=== PATIENT | female | born 1955 | race Caucasian/White ===

== ENCOUNTER 2016-07-20 14:10 | Emergency (ER) | payer BC | END 2016-07-20 14:12 | disposition left against medical advice (07) | LOC: UCEAST 14:10 | DX: Z53.21 Procedure and treatment not carried out due to patient leaving prior to being seen by health care provider (principal); N39.9 Disorder of urinary system, unspecified ==

== ENCOUNTER 2016-07-25 10:57 | Emergency (ER) | payer BC ==
[2016-07-25 11:29] VITALS: BP 145/89
--- NOTE | 2016-07-25 12:16 | UC ---
Complaint Female HPI - HPI Summary HPI Summary: 61 year old female with complaint of constant pressure low in left pelvis and feeling of having to urinate frequently. She denies pain with urination. Denies fever, chills, nausea or vomiting. She was evaluated last Saturday, 5 days ago for the same symptoms. No urinary infection was found. Pelvic exam was done and found to be normal. It was recommended to her to drink try baking soda for her symptoms. She states that caused constipation. She has taken a new supplement and is now having loose stools. She denies vaginal discharge or bleeding Hx of significant anxiety and she recognizes it is very high over the last few weeks Hx of right Oophorectomy due to cystic teratoma - History Of Current Complaint Chief Complaint: UCGU Stated Complaint: BLADDER/INTESTINAL COMPLAINT Time Seen by Provider: 07/25/16 11:17 Hx Obtained From: Patient ?: No Onset/Duration: Gradual Onset, Lasting Weeks - 2, Still Present Timing: Constant Severity Initially: Mild Severity Currently: Moderate Character: Dull, Cramping Aggravating Factor(s): Urination - and bowel movements Alleviating Factor(s): Nothing Associated Signs And Symptoms: Negative: Back Pain, Vaginal Bleeding/Discharge, Vaginal Discharge, Nausea, Vomiting(# Of Episodes =), Genital Swelling, Genital Blisters - Risk Factors Ectopic Risk Factor: Negative, Prior Pelvic Surgery Ovarian Torsion Risk Factor: Ovarian Cysts/Tumors - Allergies/Home Medications Allergies/Adverse Reactions: Allergies Allergy/AdvReac Type Severity Reaction Status Date / Time No Known Allergies Allergy Verified 07/25/16 11:18 PMH/Surg Hx/FS Hx/Imm Hx Previously Healthy: Yes Endocrine History Of: 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, Hypothyroidism Denies: Diabetes, Hyperthyroidism Cardiovascular History Of: Denies: Cardiac Disorders, Hypertension, Pacemaker/ICD Respiratory History Of: Denies: COPD, Asthma GI/ History Of: Denies: Ulcer Neurological History Of: Denies: TIA, Seizures Psychological History Of: Denies: Anxiety, Depression Cancer History Of: Denies: Breast Cancer - Surgical History Surgical History: Yes Surgery Procedure, Year, and Place: BREAST REDUCTION 2005, 1997, R OVARIAN CYST REMOVAL 1978, 4 TEETH IMPLANTS, Tonsillectomy - Family History Known Family History: Positive: Hypertension Negative: Diabetes - Social History Occupation: Employed Full-time Lives: With Family Alcohol Use: Occasionally Alcohol Amount: 2 drinks a week Substance Use Type: None Smoking Status (MU): Never Smoked Tobacco Have You Smoked in the Last Year: No - Immunization History Most Recent Influenza Vaccination: has not had it Most Recent Tetanus Shot: up to date Most Recent Pneumonia Vaccination: never had Review of Systems Constitutional: Negative Skin: Negative Eyes: Negative ENT: Negative Respiratory: Negative Cardiovascular: Negative Gastrointestinal: Abdominal Pain - aching low on left side and cramping pain with frequent urination Genitourinary: Dysuria, Frequency Motor: Negative Neurovascular: Negative Musculoskeletal: Negative Neurological: Negative Psychological: Anxious - very All Other Systems Reviewed And Are Negative: Yes Physical Exam Triage Information Reviewed: Yes Appearance: No Pain Distress, Well-Nourished, Ill-Appearing - with obvious anxiety Vital Signs: Initial Vital Signs Temp 97.7 F 07/25/16 11:20 Pulse 93 07/25/16 11:20 Resp 18 07/25/16 11:20 BP 145/89 07/25/16 11:20 Pulse Ox 100 07/25/16 11:20 Vital Signs Reviewed: Yes Eyes: Positive: Conjunctiva Clear. Negative: Discharge ENT: Positive: Hearing grossly normal. Negative: Nasal congestion Neck: Positive: Supple, Nontender Respiratory: Positive: Lungs clear, Normal breath sounds Cardiovascular: Positive: RRR, No Murmur Abdomen Description: Positive: Nontender, No Organomegaly, Soft. Negative: CVA Tenderness (R), CVA Tenderness (L), Distended, Guarding, Peritoneal Signs, Pulsatile Mass Musculoskeletal: Positive: Strength Intact, ROM Intact Neurological: Positive: Alert, Muscle Tone Normal Psychological: Positive: Age Appropriate Behavior - pleasant and cooperative Skin: Negative: rashes, breakdown Complaint Female Dx - Course Course Of Treatment: pelvic ultrasound - unremarkable. Pt reassured. UA - negative. Much discussion and education about her anxiety. Follow up plan established - Differential Dx/Diagnosis Differential Diagnosis/HQI/PQRI: Ovarian Cyst, Urinary Tract Infection Provider Diagnoses: Anxiety. Pelvic Pain. Urinary frequency Discharge - Discharge Plan Condition: Stable Disposition: HOME Patient Education Materials: Pelvic Pain in Women (ED) Referrals: Jazmin Hoover MD [Primary Care Provider] - 5 Days (for follow up) Additional Instructions: If your symptoms worsen in anyway please go to the emergency department for further evaluation
--- NOTE | 2016-07-25 13:00 | RAD ---
INDICATION: Left pelvic pressure. History of resection of right adnexal cystic teratoma COMPARISON: None TECHNIQUE: Longitudinal and transverse transvaginal scans of the pelvis were obtained. FINDINGS: Uterus: The uterus is normal in size. There are no focal masses. Is retroflexed. The uterus measures 5.5 x 2.4 x 2.8 cm. Endometrial thickness: The endometrial thickness is measured at 0.1 cm. . Free fluid: There is no significant free fluid . Ovaries: There is right oophrectomy by history. There may be a small remnant of the right ovary measures 1.1 cm. The left ovary measures 1.9 x 1.3 x 1.3 cm. . Doppler interrogation demonstrates flow to the left.. Other: None IMPRESSION: RIGHT OOPHRECTOMY (SEE ABOVE). NORMAL UTERUS AND LEFT OVARY
== END 2016-07-25 13:27 | disposition home or self-care (01) ==
LOC: UCEAST 10:57
DX: R10.2 Pelvic and perineal pain (principal); R35.0 Frequency of micturition; F41.9 Anxiety disorder, unspecified; E06.3 Autoimmune thyroiditis; E03.9 Hypothyroidism, unspecified; Z90.721 Acquired absence of ovaries, unilateral
CPT/HCPCS: 76830; 81002; 99211; G0463

== ENCOUNTER 2017-04-02 07:47 | Emergency (ER) | payer BC ==
[2017-04-02 09:52] VITALS: BP 144/84
--- NOTE | 2017-04-02 10:39 | UC ---
Abdominal Pain Female HPI - HPI Summary HPI Summary: Patient presents to with CC of left rib pain x 2 months. She states the pain is under the rib cage, worse with palpation and worse with movement. Better with rest. She states she has had chronic anxiety x 1.5 years since her husbands passing and symptoms become worse when her anxiety worsens. She has some intermittent diarrhea which has been present for over 10 years. She was never dx with IBS, but feels she may have some of the symptoms. She denies N/V/ C. Denies lack of appetite. Denies any food or behavioral changes. She states when she relaxes and is around friends, the pain reduces and often will go away completely. She also notes the pain is worse after pilates. Denies chest pain, SOB, urinary symptoms, back pain. She states she is very active and feels healthy overall. Denies injury to the ribs. Denies OCP use, travel hx or sedentary lifestyle. - History of Current Complaint Chief Complaint: UCGI Stated Complaint: ABD PAIN Time Seen by Provider: 04/02/17 09:26 Hx Obtained From: Patient ?: No Onset/Duration: Gradual Onset Timing: Intermittent Episodes Lasting: - 30min-1 hour Severity Initially: Mild Severity Currently: Mild Pain Intensity: 2 Pain Scale Used: 0-10 Numeric Location: Other - left ribs Radiates: No Character: Aching Aggravating Factor(s): Movement Alleviating Factor(s): Position Associated Signs and Symptoms: Positive: Negative - Risk Factors Ectopic Risk Factor: Negative Ovarian Torsion Risk Factor: Reproductive Age, Ovarian Cysts/Tumors - 1x - 40 years ago, Hysterectomy - 30 years ago Allergies/Adverse Reactions: Allergies Allergy/AdvReac Type Severity Reaction Status Date / Time No Known Allergies Allergy Verified 04/02/17 08:13 PMH/Surg Hx/FS Hx/Imm Hx Previously Healthy: Yes - Surgical History Surgical History: Yes Surgery Procedure, Year, and Place: BREAST REDUCTION 2005, 1997, R OVARIAN CYST REMOVAL 1978, 4 TEETH IMPLANTS, Tonsillectomy - Family History Known Family History: Positive: None, Hypertension Negative: Diabetes - Social History Occupation: Employed Part-time Lives: Alone Alcohol Use: Occasionally Alcohol Amount: 2 drinks a week Substance Use Type: None Smoking Status (MU): Never Smoked Tobacco Have You Smoked in the Last Year: No - Immunization History Most Recent Influenza Vaccination: has not had it Most Recent Tetanus Shot: up to date Most Recent Pneumonia Vaccination: never had Review of Systems Constitutional: Negative Skin: Negative ENT: Negative Respiratory: Negative Cardiovascular: Negative Gastrointestinal: Other - left upper quadrant/rib pain Genitourinary: Negative Motor: Negative Neurovascular: Negative Musculoskeletal: Arthralgia - left upper rib pain Neurological: Negative Psychological: Anxious Is Patient Immunocompromised?: No All Other Systems Reviewed And Are Negative: Yes Physical Exam Triage Information Reviewed: Yes Appearance: Well-Appearing, Well-Nourished Vital Signs: Initial Vital Signs Temp 96.8 F 04/02/17 08:09 Pulse 88 04/02/17 08:09 Resp 18 04/02/17 08:09 BP 139/87 04/02/17 08:09 Pulse Ox 100 04/02/17 08:09 Vital Signs Reviewed: Yes Eye Exam: Normal Eyes: Positive: Conjunctiva Clear ENT Exam: Normal ENT: Positive: Normal ENT inspection, Pharynx normal Dental Exam: Normal Neck exam: Normal Neck: Positive: Supple, Nontender, No Lymphadenopathy Respiratory Exam: Normal Respiratory: Positive: Chest non-tender, Lungs clear, Normal breath sounds, No respiratory distress, No accessory muscle use, Other: Cardiovascular Exam: Normal Cardiovascular: Positive: RRR Musculoskeletal Exam: Normal Musculoskeletal: Positive: Strength Intact, Other: - pain on palpation under the left rib cage Neurological: Positive: Alert, Muscle Tone Normal Psychological: Positive: Normal Response To Family Skin Exam: Normal Abd Pain Female Course/Dx - Course Course Of Treatment: Patient evaluated for left rib pain/abdominal pain. She exhibits signs and sxs of anxiety, which she states worsens her left side body pain. Worsening symptoms with pilates and stretching. Better with rest and when out with friends (which reduces her anxiety). She does not exhibit any chest pain signs including chest pain worse with exertion or SOB. She denies cardiac history. She is concerned with pancreatic CA. Explained to patient usually signs of pancreatic CA includes early satiety and bloated feeling, both of which the patient does not currently have. She denies trauma to the area. Denies travel history, calf pain, OCP use or hx of CA. Low concern for PE at this time and this was discussed with patient. Recent lab work obtained 2 weeks ago, all which was WNL. Discussed lab results with patient and she agrees to follow up with PCP next week and possibly GI specialist if any symptoms of diarrhea (which has been present intermittently for 10 years) remains. She denies ETOH use so pancreatitis is unlikely. The feeling does not improve with food or worsen with caffeine, so less likely to be GERD or ulcer or gastritis sxs. She is also being seen by her PCP for anxiety symptoms and currently has clonazepam at home for which she takes. She is reassured during this visit this is likely muscular, but if symptoms persist or worsen or change, she will need to go to the ED where she is able to get labs and images as needed. She agrees and is OK with dsicharge at this time. Referral to Dr. Meza given. - Differential Dx/Diagnosis Differential Diagnosis: Constipation, Diverticulitis, Pancreatitis Provider Diagnoses: Muscular strain Discharge - Discharge Plan Condition: Stable Disposition: HOME Patient Education Materials: Muscle Strain (ED) Referrals: Jazmin Hoover MD [Primary Care Provider] - Mike Meza MD [Medical Doctor] - Additional Instructions: Follow up only as needed with Dr. Meza for worsening symptoms. Continue to stretch out the side body. This is likely muscular. If anything worsens or the pain seems to not be going away, please go to the ED. Relaxation techniques may help with any symptoms of anxiety.
== END 2017-04-02 10:38 | disposition home or self-care (01) ==
LOC: UCEAST 07:47
DX: S29.011A Strain of muscle and tendon of front wall of thorax, initial encounter (principal); X58.XXXA Exposure to other specified factors, initial encounter; Y93.9 Activity, unspecified; Y92.9 Unspecified place or not applicable; F41.9 Anxiety disorder, unspecified
CPT/HCPCS: 99212; G0463

== ENCOUNTER 2017-06-01 07:57 | Emergency (ER) | payer BC ==
[2017-06-01] MEDS ORDERED: Lidocaine 1% MPF* 2 ML VIAL INJ ONE (09:36)
[2017-06-01 10:09] VITALS: BP 122/80
--- NOTE | 2017-06-01 14:59 | UC ---
Han Aguilar Angela, scribed for KurtDorene DO Victorina on 06/01/17 at 0840 . Upper Extremity HPI - HPI Summary HPI Summary: This pt is a 62 y/o female presenting to [facility] c/o left 4th finger redness and swelling. Pt reports her other finger on the same left hand was infected last week. Pt notes she was soaking her whole hand in Epson salt and Dr Anaya lanced her infected finger, which has now resolved. Now, pt reports with left 4th finger redness and swelling. She states she bites her nails, but denies other trauma or injury to her finger. She notes she has been soaking her finger in hot water. Pt has also tried using a needle to drain it with no relief. She reports that her skin on her hand cracks in the winter. Pt also carries firewood without gloves, which she states might have contributed to her swelling. Pt denies fever, nausea, vomiting, chest pain, SOB, cough, sore throat. PMHx includes C. diff, hypothyroidism. - History of Current Complaint Chief Complaint: UCGeneralIllness Stated Complaint: INFECTED FINGER Hx Obtained From: Patient Onset/Duration: Lasting Days, Still Present Pain Intensity: 7 Pain Scale Used: 0-10 Numeric Location Of Pain: Is Discrete @ - left fourth finger Character: Throbbing Aggravating Factor(s): Movement, Other - pressure Alleviating Factor(s): Other: - soaking in hot water Associated Signs And Symptoms: Positive: Swelling, Redness. Negative: Fever, Numbness/Tingling - Allergies/Home Medications Allergies/Adverse Reactions: Allergies Allergy/AdvReac Type Severity Reaction Status Date / Time No Known Allergies Allergy Verified 06/01/17 08:01 Home Medications: Home Medications LORazepam TAB(*) [Ativan 1 MG TAB (*)] 1 mg PO 06/01/17 [History] Sertraline* [Zoloft*] 25 mg PO DAILY 06/01/17 [History Confirmed 06/01/17] PMH/Surg Hx/FS Hx/Imm Hx - Additional Past Medical History Additional PMH: PMHx: C. diff. Endocrine History: Thyroid Disease - Marge's Other Endocrine History: DENIES: DM Other Cardiovascular History: DENIES: HTN Psychological History: Anxiety - Surgical History Surgical History: Yes Surgery Procedure, Year, and Place: BREAST REDUCTION 2005, 1997, R OVARIAN CYST REMOVAL 1979, 4 TEETH IMPLANTS, Tonsillectomy - Family History Known Family History: Positive: Other - CA. Daughter: C. diff Negative: Cardiac Disease, Hypertension, Diabetes - Social History Alcohol Use: Occasionally Alcohol Amount: 2 drinks a week Substance Use Type: None Smoking Status (MU): Never Smoked Tobacco Have You Smoked in the Last Year: No - Immunization History Most Recent Influenza Vaccination: has not had it Most Recent Tetanus Shot: up to date Most Recent Pneumonia Vaccination: never had Review of Systems Constitutional: Negative Skin: Negative Eyes: Negative ENT: Negative Respiratory: Negative Cardiovascular: Negative Gastrointestinal: Negative Genitourinary: Negative Motor: Negative Neurovascular: Negative Musculoskeletal: Other: - left fourth finger swelling and redness Neurological: Negative Psychological: Negative All Other Systems Reviewed And Are Negative: Yes Physical Exam Triage Information Reviewed: Yes Appearance: Well-Appearing, No Pain Distress, Well-Nourished Vital Signs: Initial Vital Signs Temp 97.2 F 06/01/17 08:03 Pulse 78 06/01/17 08:03 Resp 15 06/01/17 08:03 BP 104/60 06/01/17 08:03 Pulse Ox 99 06/01/17 08:03 Vital Signs Reviewed: Yes Eyes: Positive: Conjunctiva Clear. Negative: Discharge ENT: Positive: Hearing grossly normal. Negative: Muffled voice, Hoarse voice Neck exam: Normal Neck: Positive: Supple Respiratory: Positive: Lungs clear, Normal breath sounds, No respiratory distress, No accessory muscle use Cardiovascular: Positive: RRR, No Murmur Musculoskeletal: Positive: Edema @ - fourth finger on the left hand. Neurological: Positive: Alert, Muscle Tone Normal Psychological Exam: Normal Psychological: Positive: Age Appropriate Behavior Skin Exam: Normal, Other - Warm, dry, normal color Skin: Positive: Other - Swelling, erythema, and tenderness around the ulnar border of the nail bed on the fourth finger of the left hand. No fluctulance was noted. There is a pyogenic granuloma note along the borader of the mail bed on that same finger. Upper Extremity Course/Dx - Course Course Of Treatment: Medications reviewed this visit. High blood pressure noted likely due to pts condition. Attempted to drain finger without success. Pt will be discharged with Keflex. - Differential Dx/Diagnosis Provider Diagnoses: Paronychia, pyogenic granuloma Discharge - Discharge Plan Condition: Stable Disposition: HOME Prescriptions: Cephalexin CAP* [Keflex CAP*] 500 mg PO BID #20 cap Patient Education Materials: Paronychia (ED) Referrals: Jazmin Hoover MD [Primary Care Provider] - 2 Weeks Additional Instructions: WE ATTEMPTED TO DRAIN THE INFECTION ON YOUR FINGER WITHOUT SUCCESS. CEPHALEXIN: The antibiotic you've been prescribed is a member of the cephalosporin class. This type of antibiotic covers a wide variety of infections, including those of the skin, lungs, and urinary tract. It's useful for staph infections. This antibiotic is slightly similar to the penicillin family. In rare cases , a person who is allergic to penicillin will also be allergic to this medication. If you have had a severe allergic reaction to penicillin, and have not taken this antibiotic since that time, notify your doctor. Antibiotics which cover many germs ("broad spectrum" antibiotics) are more likely to cause diarrhea or "yeast" infections. Women prone to vaginal yeast problems may suffer an attack after taking this antibiotic. In infants, oral thrush (white spots "stuck" on the cheek) or yeast diaper rash may result. See your doctor if these problems occur. Call at once if you develop itching, hives , shortness of breath, or lightheadedness. ANYTIME YOU TAKE AN ANTIBIOTIC, IT IS IMPORTANT TO REPLENISH THE BODY'S SUPPLY OF "GOOD BACTERIA." YOU CAN GET GOOD BACTERIA FROM HIGH QUALITY CULTURED FOODS SUCH LOCAL YOGURT, SOUR KRAUT, MACHELLE HA, NATURALLY FERMENTED PICKLES AND PROBIOTIC DRINKS. YOU CAN ALSO GET GOOD BACTERIA FROM A PROBIOTIC SUPPLEMENT. DISCUSSED, YOU HAVE ALSO DEVELOPED A GRANULOMA ON THE EDGE OF YOU NAIL BED. THESE CAN BE REMOVED SURGICALLY. Your blood pressure was elevated at this visit, 122/80. That does not mean you have hypertension, it is probably due to your current condition. Please follow up with your primary care provider. The documentation as recorded by the Han fonseca Angela accurately reflects the service I personally performed and the decisions made by me, Dorene Hicks DO.
== END 2017-06-01 10:45 | disposition home or self-care (01) ==
LOC: UCEAST 07:57
DX: L03.012 Cellulitis of left finger (principal); L98.0 Pyogenic granuloma; Z72.89 Other problems related to lifestyle; R03.0 Elevated blood-pressure reading, without diagnosis of hypertension; F41.9 Anxiety disorder, unspecified
CPT/HCPCS: 99212; G0463

== ENCOUNTER 2018-04-30 14:43 | Emergency (ER) | payer BC ==
[2018-04-30 14:53] VITALS: BP 150/91
--- NOTE | 2018-04-30 16:14 | UC ---
Skin Complaint HPI - HPI Summary HPI Summary: 2- 3 days ago patient noticed a small lump on her left upper inner thigh. Thinks it may have been there for some time but has a lot of anxiety about medical conditions so she started playing with it and squeezing it and poking at it. Overlying skin is slightly red but no induration or fluctuance. No fever or drainage. - History of Current Complaint Chief Complaint: UCLowerExtremity Time Seen by Provider: 04/30/18 15:53 Stated Complaint: SKIN IRRITATION ON THIGH Hx Obtained From: Patient Onset/Duration: Sudden Onset, Lasting Days, Still Present Timing: Constant Onset Severity: Mild Current Severity: Mild Pain Intensity: 1 Pain Scale Used: 0-10 Numeric Location: Discrete - LEFT, UPPER, INNER THIGH Character: Pain Aggravating Factor(s): Touch Alleviating Factor(s): Nothing Associated Signs & Symptoms: Positive: Negative - Allergy/Home Medications Allergies/Adverse Reactions: Allergies Allergy/AdvReac Type Severity Reaction Status Date / Time No Known Allergies Allergy Verified 04/30/18 14:54 Review of Systems Constitutional: Negative Skin: Other - PAINFUL BUMP LEFT UPPER INNER THIGH Respiratory: Negative Cardiovascular: Negative Gastrointestinal: Negative All Other Systems Reviewed And Are Negative: Yes PMH/Surg Hx/FS Hx/Imm Hx Psychological History: Anxiety - Surgical History Surgical History: Yes Surgery Procedure, Year, and Place: BREAST REDUCTION 2005, 1997, R OVARIAN CYST REMOVAL 1978, 4 TEETH IMPLANTS, Tonsillectomy - Family History Known Family History: Positive: None, Other - CA. Daughter: C. diff Negative: Cardiac Disease, Hypertension, Diabetes - Social History Alcohol Use: Occasionally Alcohol Amount: 2 drinks a week Substance Use Type: None Smoking Status (MU): Never Smoked Tobacco Have You Smoked in the Last Year: No - Immunization History Most Recent Influenza Vaccination: has not had it Most Recent Tetanus Shot: up to date Most Recent Pneumonia Vaccination: never had Physical Exam Triage Information Reviewed: Yes Appearance: Well-Appearing, No Pain Distress, Well-Nourished Vital Signs: Initial Vital Signs Temp 97.3 F 04/30/18 14:48 Pulse 106 04/30/18 14:48 Resp 18 04/30/18 14:48 BP 150/91 04/30/18 14:48 Pulse Ox 100 04/30/18 14:48 Vital Signs Reviewed: Yes Eyes: Positive: Conjunctiva Clear ENT: Positive: Hearing grossly normal Neck: Positive: Supple Respiratory: Positive: No respiratory distress, No accessory muscle use Cardiovascular: Positive: Pulses Normal Abdomen Description: Positive: Soft Musculoskeletal: Positive: No Edema Neurological: Positive: Alert Psychological: Positive: Age Appropriate Behavior Skin: Positive: Other - 2CM AREA MILD ERYTHEMA LEFT UPPER, INNER THIGH OVERLYING A TENDER, FIRM 1 CM NODULE PALPATED SUBCUTANEOUSLY. NO FLUCTUANCE OR INDURATION Course/Dx - Diagnoses Provider Diagnoses: CYST - LEFT UPPER INNER THIGH Discharge - Sign-Out/Discharge Documenting (check all that apply): Patient Departure All imaging exams completed and their final reports reviewed: No Studies - Discharge Plan Condition: Stable Disposition: HOME Referrals: Jazmin Hoover MD [Primary Care Provider] - If Needed Additional Instructions: THE SMALL CYST-LIKE STRUCTURE DOES NOT SEEM TO BE ANYTHING CONCERNING AT PRESENT. STOP SQUEEZING IT. THE REDNESS AND DISCOMFORT SHOULD SUBSIDE OVER THE NEXT WEEK OR SO. SEEK FOLLOW-UP IF YOU DEVELOP SPREADING REDNESS OF THE SKIN, PURULENT DRAINAGE, FEVER, INCREASED PAIN OR ANY OTHER CONCERNING SYMPTOMS. - Billing Disposition and Condition Condition: STABLE Disposition: Home
== END 2018-04-30 16:15 | disposition home or self-care (01) ==
LOC: UCEAST 14:43
DX: L72.9 Follicular cyst of the skin and subcutaneous tissue, unspecified (principal)
CPT/HCPCS: 99211; G0463

== ENCOUNTER 2018-05-06 07:45 | Emergency (ER) | payer BC ==
[2018-05-06 07:57] VITALS: BP 151/84
--- NOTE | 2018-05-06 08:17 | UC ---
Skin Complaint HPI - HPI Summary HPI Summary: ONSET OF ITCHY, SOMEWHAT PAINFUL RED RASH RIGHT ANTERIOR SHOULDER 3 DAYS AGO. NO DRAINAGE. NO FEVER. PT IS EXTREMELY ANXIOUS DUE TO RECENT FAMILY ILLNESS. - History of Current Complaint Chief Complaint: UCRash Time Seen by Provider: 05/06/18 08:00 Stated Complaint: RASH ANXIETY Hx Obtained From: Patient Onset/Duration: Sudden Onset, Lasting Days, Still Present Timing: Constant Onset Severity: Moderate Current Severity: Moderate Pain Intensity: 0 Pain Scale Used: 0-10 Numeric Location: Discrete - RIGHT ANTERIOR SHOULDER Character: Pruritus, Pain, Redness, Raised Aggravating Factor(s): Touch Alleviating Factor(s): Nothing Associated Signs & Symptoms: Positive: Rash, Tenderness - Allergy/Home Medications Allergies/Adverse Reactions: Allergies Allergy/AdvReac Type Severity Reaction Status Date / Time No Known Allergies Allergy Verified 05/06/18 07:56 Review of Systems Constitutional: Negative Skin: Rash Respiratory: Negative Cardiovascular: Negative Gastrointestinal: Negative Psychological: Anxious All Other Systems Reviewed And Are Negative: Yes PMH/Surg Hx/FS Hx/Imm Hx Endocrine History: Hypothyroidism Psychological History: Anxiety - Surgical History Surgical History: Yes Surgery Procedure, Year, and Place: BREAST REDUCTION 2005, 1997, R OVARIAN CYST REMOVAL 1978, 4 TEETH IMPLANTS, Tonsillectomy - Family History Known Family History: Positive: None, Other - [place]. Daughter: C. diff Negative: Cardiac Disease, Hypertension, Diabetes - Social History Alcohol Use: Occasionally Alcohol Amount: 2 drinks a week Substance Use Type: Prescribed Smoking Status (MU): Never Smoked Tobacco Have You Smoked in the Last Year: No - Immunization History Most Recent Influenza Vaccination: has not had it Most Recent Tetanus Shot: up to date Most Recent Pneumonia Vaccination: never had Physical Exam Triage Information Reviewed: Yes Appearance: Well-Appearing, No Pain Distress, Well-Nourished Vital Signs: Initial Vital Signs Temp 97.3 F 05/06/18 07:51 Pulse 102 05/06/18 07:51 Resp 18 05/06/18 07:51 BP 151/84 05/06/18 07:51 Pulse Ox 100 05/06/18 07:51 Vital Signs Reviewed: Yes Eyes: Positive: Conjunctiva Clear ENT: Positive: Hearing grossly normal Neck: Positive: Supple Respiratory: Positive: No respiratory distress, No accessory muscle use Cardiovascular: Positive: Pulses Normal Abdomen Description: Positive: Soft Musculoskeletal: Positive: No Edema Neurological: Positive: Alert Psychological: Positive: Age Appropriate Behavior, Other: - ANXIOUS Skin: Positive: rashes - ERYTHEMATOUS, SLIGHTLY RAISED, VESICULAR RASH RIGHT ANTERIOR SHOULDER Course/Dx - Course Course Of Treatment: VALACYCLOVIR TID X 7 DAYS. DISCUSSED TYPICAL PROGRESSION OF CONDITION. KEEP COVERED. AVOID CONTACT WITH UNVACCINATED INFANTS. FOLLOW-UP IF NOT IMPROVING EXPECTED. - Diagnoses Provider Diagnoses: SHINGLES Discharge - Sign-Out/Discharge Documenting (check all that apply): Patient Departure All imaging exams completed and their final reports reviewed: No Studies - Discharge Plan Condition: Stable Disposition: HOME Prescriptions: Valacyclovir HCl [Valacyclovir] 1,000 mg PO TID #21 tablet Patient Education Materials: Shinismael (ED) Referrals: Jazmin Hoover MD [Primary Care Provider] - If Needed Additional Instructions: YOUR BLOOD PRESSURE WAS ELEVATED TODAY (151/84). THIS MAY BE DUE TO YOUR ACUTE CONDITION. MONITOR AND FOLLOW-UP WITH YOUR PCP WITHIN 4 WEEKS IF IT HAS NOT RETURNED TO NORMAL. - Billing Disposition and Condition Condition: STABLE Disposition: Home
== END 2018-05-06 08:37 | disposition home or self-care (01) ==
LOC: UCEAST 07:45
DX: B02.9 Zoster without complications (principal)
CPT/HCPCS: 99212; G0463

== ENCOUNTER 2018-06-02 07:18 | Emergency (ER) | payer BC ==
[2018-06-02 07:36] VITALS: BP 164/95
--- NOTE | 2018-06-02 08:07 | UC ---
Skin Complaint HPI - HPI Summary HPI Summary: 63-year-old female here with a chief complaint of feeling of a lump underneath her left armPIT. She noticed it 3 days ago shower. She feels it more when she is sitting up on her arm is down. She lays back up his arm overhead she does not notice it. She had a normal mammogram one month ago. She feels physically well. No infection or cuts in the left arm. Patient has been very anxious which his condition she's had since the passing of her a couple years ago. - History of Current Complaint Chief Complaint: UCSkin Time Seen by Provider: 06/02/18 07:44 Stated Complaint: ANXIETY Pain Intensity: 0 - Allergy/Home Medications Allergies/Adverse Reactions: Allergies Allergy/AdvReac Type Severity Reaction Status Date / Time No Known Allergies Allergy Verified 06/02/18 07:25 Review of Systems All Other Systems Reviewed And Are Negative: Yes Constitutional: Positive: Negative Skin: Positive: Negative Eyes: Positive: Negative ENT: Positive: Negative Respiratory: Positive: Negative Cardiovascular: Positive: Negative Gastrointestinal: Positive: Negative Motor: Positive: Negative Neurovascular: Positive: Negative Musculoskeletal: Positive: Other: - SEE HPI Neurological: Positive: Negative Psychological: Positive: Negative Is Patient Immunocompromised?: No PMH/Surg Hx/FS Hx/Imm Hx Previously Healthy: Yes Psychological History: Anxiety - Surgical History Surgical History: Yes Surgery Procedure, Year, and Place: BREAST REDUCTION 2005, 1997, R OVARIAN CYST REMOVAL 1979, 4 TEETH IMPLANTS, Tonsillectomy - Family History Known Family History: Positive: None, Other - [place]. Daughter: C. diff Negative: Cardiac Disease, Hypertension, Diabetes - Social History Alcohol Use: Occasionally Alcohol Amount: 2 drinks a week Substance Use Type: None Smoking Status (MU): Never Smoked Tobacco Have You Smoked in the Last Year: No - Immunization History Most Recent Influenza Vaccination: has not had it Most Recent Tetanus Shot: up to date Most Recent Pneumonia Vaccination: never had Physical Exam Triage Information Reviewed: Yes Appearance: Well-Appearing, No Pain Distress, Well-Nourished Vital Signs: Initial Vital Signs Temp 97.2 F 06/02/18 07:27 Pulse 109 06/02/18 07:27 Resp 22 06/02/18 07:27 BP 164/95 06/02/18 07:27 Pulse Ox 100 06/02/18 07:27 Vital Signs Reviewed: Yes Eye Exam: Normal Eyes: Positive: Conjunctiva Clear Neck exam: Normal Neck: Positive: Supple Respiratory: Positive: No respiratory distress Musculoskeletal: Positive: Other: - Breast exam was normal. Also performed bilateral axilla examinations. With the patient laying down and her arms above her head they were symmetric I can feel the muscle in the axilla as being sputum with no irregularities. I did not feel any abnormal lesions or lymph nodes. The patient sitting up a lot of the muscles in the axilla on the left is slightly different than on the right but it feels contiguous with the muscle. Neurological Exam: Normal Neurological: Positive: Alert, Muscle Tone Normal Psychological Exam: Normal Psychological: Positive: Age Appropriate Behavior Skin Exam: Normal Course/Dx - Course Course Of Treatment: Overall the examination is normally do not feel any abnormal swellings the muscle in the left axilla may be slightly different than the right axilla. I do not feel any hard or concerning lesions. Discussed all this with the patient and she is planning to follow-up with primary care doctor. Follow-up following up with her primary care doctor for her anxiety also. - Diagnoses Provider Diagnoses: BENIGN LEFT AXILLA EXAMINATION Discharge - Sign-Out/Discharge Documenting (check all that apply): Patient Departure All imaging exams completed and their final reports reviewed: No Studies - Discharge Plan Condition: Stable Disposition: HOME Patient Education Materials: Anxiety (ED), Normal Exam (ED) Referrals: Jazmin Hoover MD [Primary Care Provider] - Additional Instructions: FOLLOW UP WITH YOUR DOCTOR SCHEDULED FOR A RE EVALUATION OF YOUR LEFT AXILLA AND ANXIETY. GET RECHECKED FOR ANY WORSENING OF YOUR CONDITION OR QUESTIONS OR CONCERNS. - Billing Disposition and Condition Condition: STABLE Disposition: Home
== END 2018-06-02 08:12 | disposition home or self-care (01) ==
LOC: UCEAST 07:18
DX: Z03.89 Encounter for observation for other suspected diseases and conditions ruled out (principal)
CPT/HCPCS: 99211; G0463

== ENCOUNTER 2018-09-16 14:40 | Emergency (ER) | payer BC ==
[2018-09-16 15:38] VITALS: BP 145/86
--- NOTE | 2018-09-16 15:40 | UC ---
Complaint Female HPI - HPI Summary HPI Summary: 63 yo female presents with 3-4 days of bladder pressure and urinary frequency. She tells me that she saw her PCP yesterday and a dipstick was negative - per pt. Today her symptoms have continued and she feels some burning with urination. She denies fever, chills, abdominal pain, n/v, flank pain. No vaginal discharge or bleeding. - History Of Current Complaint Chief Complaint: UCGU Stated Complaint: bladder infect Time Seen by Provider: 09/16/18 15:39 Hx Obtained From: Patient Onset/Duration: Gradual Onset Severity Initially: Mild Severity Currently: Mild Pain Intensity: 3 Pain Scale Used: 0-10 Numeric - Allergies/Home Medications Allergies/Adverse Reactions: Allergies Allergy/AdvReac Type Severity Reaction Status Date / Time No Known Allergies Allergy Verified 09/16/18 15:38 PMH/Surg Hx/FS Hx/Imm Hx Psychological History: Anxiety - Surgical History Surgical History: Yes Surgery Procedure, Year, and Place: BREAST REDUCTION 2005, 1997, R OVARIAN CYST REMOVAL 1978, 4 TEETH IMPLANTS, Tonsillectomy - Family History Known Family History: Positive: None, Other - [place]. Daughter: C. diff Negative: Cardiac Disease, Hypertension, Diabetes - Social History Lives: With Family Alcohol Use: Occasionally Alcohol Amount: 2 drinks a week Substance Use Type: None Smoking Status (MU): Never Smoked Tobacco Have You Smoked in the Last Year: No - Immunization History Most Recent Influenza Vaccination: has not had it Most Recent Tetanus Shot: up to date Most Recent Pneumonia Vaccination: never had Review of Systems All Other Systems Reviewed And Are Negative: Yes Constitutional: Positive: Negative Skin: Positive: Negative Respiratory: Positive: Negative Cardiovascular: Positive: Negative Genitourinary: Positive: Dysuria, Frequency Motor: Positive: Negative Neurological: Positive: Negative Psychological: Positive: Negative Physical Exam - Summary Physical Exam Summary: GENERAL: NAD. WDWN. No pain distress. SKIN: No rashes, sores, lesions, or open wounds. NECK: Supple. Nontender. No lymphadenopathy. CHEST: CTAB. No r/r/w. No accessory muscle use. Breathing comfortably and in no distress. CV: RRR. Without m/r/g. Pulses intact. Cap refill <2seconds ABDOMEN: Soft. NTTP. No CVA tenderness. Bowel sounds present NEURO: Alert. PSYCH: Age appropriate behavior. Triage Information Reviewed: Yes Vital Signs: Initial Vital Signs Temp 97.1 F 09/16/18 15:32 Pulse 85 09/16/18 15:32 Resp 16 09/16/18 15:32 BP 145/86 09/16/18 15:32 Pulse Ox 100 09/16/18 15:32 Laboratory Tests 09/16/18 15:53 POC Urine Color Yellow POC Urine Clarity Clear POC Urine pH 7.0 POC Ur Specif Carmine 1.010 POC Urine Protein Negative POC Ur Glucose (UA) Negative POC Urine Ketones Negative POC Urine Blood Negative POC Urine Nitrite Negative POC Urine Bilirubin Negative POC Urine Urobilinogen 0.2 POC U Leukocyte Esteras Trace A Vital Signs Reviewed: Yes Complaint Female Dx - Course Course Of Treatment: UA with trace leuks. Given her symptoms will treat for UTI and send her urine for culture. - Differential Dx/Diagnosis Provider Diagnosis: UTI (urinary tract infection) Discharge - Sign-Out/Discharge Documenting (check all that apply): Patient Departure All imaging exams completed and their final reports reviewed: No Studies - Discharge Plan Condition: Stable Disposition: HOME Prescriptions: Nitrofurantoin Monohyd/M-Cryst [Macrobid 100 mg Capsule] 100 mg PO BID #10 cap Patient Education Materials: Urinary Tract Infection in Women (DC) Referrals: Jazmin Hoover MD [Primary Care Provider] - Additional Instructions: If you develop a fever, shortness of breath, chest pain, new or worsening symptoms - please call your PCP or go to the ED. - Billing Disposition and Condition Condition: STABLE Disposition: Home
== END 2018-09-16 16:27 | disposition home or self-care (01) ==
LOC: UCEAST 14:40
DX: N39.0 Urinary tract infection, site not specified (principal)
CPT/HCPCS: 81003; 87086; 99212; G0463

== ENCOUNTER 2023-05-16 00:21 | Inpatient (IN) ==
[2023-05-16 01:19] LABS: ABS Lymphocytes 0.4 10^3/uL (1.0-4.8); ABS Monocytes 0.2 10^3/uL (0.0-0.9); ABS Neutrophils 6.1 10^3/uL (1.5-7.6); Hematocrit 37.1 % (35-45); Hemoglobin 12.7 g/dL (11.5-14.3); Mean Corpuscular Hemoglobin 30.6 pg (27-33); Mean Corpuscular Hgb Conc 34.3 g/dL (31-36); Mean Corpuscular Volume 89.1 fL (80-97); Platelet Count 220 10^3/uL (150-450); Red Blood Count 4.17 10^6/uL (3.63-4.92); Red Cell Distribution Width 14.2 % (12-17); White Blood Count 6.7 10^3/uL (3.8-11.8)
[2023-05-16 01:20] LABS: Eosinophil % 0.1 %; Lymphocyte % 5.9 %; Nucleated Red Blood Cells % 0.1 %/100WBC (0.0-0.8)
[2023-05-16 01:35] LABS: Albumin 4.1 g/dL (3.2-5.2); Calcium 9.9 mg/dL (8.6-10.3); Potassium 3.7 mmol/L (3.5-5.0); Total Bilirubin 0.4 mg/dL (0.2-1.0)
[2023-05-16 01:37] LABS: Activated Partial Thrombo Time 29.2 seconds (26.0-38.0); INR 1.16 (0.83-1.13)
[2023-05-16 01:41] LABS: Albumin/Globulin Ratio 1.2 (1-3); C Reactive Protein 316.28 mg/L (<8.01); Creatinine, Serum 1.12 mg/dL (0.51-0.95); Globulin 3.4 g/dL (2-4); Total Protein 7.5 g/dL (6.4-8.9); eGFR CKD-EPI 53.9 (>60)
[2023-05-16 02:40] LABS: High Sensitivity Troponin 1 Hr 10 pg/mL (<15)
[2023-05-16] MEDS ORDERED: Iodixanol (CONTRAST) 320 MG/ML 100 ML SDV IV ONE (03:50)
[2023-05-16 04:32] LABS: Urine Appearance Clear; Urine Bilirubin Negative (Negative); Urine Blood 1+ (Negative); Urine Color Yellow; Urine Glucose Negative (Negative); Urine Ketones Negative (Negative); Urine Nitrite Negative (Negative); Urine Protein 1+(30 mg/dL) (Negative); Urine Specific Gravity 1.011 (1.002-1.030); Urine Urobilinogen Negative (Negative)
[2023-05-16 05:50] LABS: Urine Bacteria 1+ (Absent); Urine Red Blood Cell Trace(0-2/hpf) (Absent); Urine Squamous Epithelial Cell Present (Absent); Urine White Blood Cell Absent (Absent)
[2023-05-16] MEDS ORDERED: Gadoteridol (CONTRAST) 279.3 MG/ML 10 ML IV ONE (11:41)
[2023-05-16] MEDS ORDERED: Piperacillin/Tazobac 3.375 BAG 3.375 GM/100 ML BAG IV ONE (12:21)
[2023-05-16] MEDS ORDERED: Vancomycin 1,000 MG in NS 0.9% 250 ml 250 ML IVPB ONE (12:21)
[2023-05-16] MEDS ORDERED: Fluticasone NASAL SPRAY 50MCG 16 gm SPRAY BTL BOTH NARES ONE (12:53)
[2023-05-16] MEDS ORDERED: Lactated Ringers 1000 ml BAG 1,000 ML IV ONE ×2 (13:49→14:48)
[2023-05-16] MEDS ORDERED: Zosyn per Pharmacy NOTE FOLLOW UP SCH (14:00)
[2023-05-16] MEDS ORDERED: Vancomycin per Pharmacy 1 EA NOTE FOLLOW UP SCH (14:00)
[2023-05-16] MEDS ORDERED: Dextrose 50% Syringe 50 ml 25 GM/50 ML SYRINGE IV PUSH PRN (15:34)
[2023-05-16] MEDS ORDERED: ZOSYN 3.375 GM Q8H per EXTENDED INFUSION IV SCH (16:30)
[2023-05-16] MEDS ORDERED: Lidocaine 4% TOPICAL 50 ML TOP.SOLN TOPICAL SCH (17:00)
[2023-05-16] MEDS: NS 0.9% 1000 ml BAG 1,000 ML IV SCH (17:24)
[2023-05-16] MEDS: ZOSYN 3.375 GM Q8H per EXTENDED INFUSION IV SCH (17:30)
[2023-05-16] MEDS: Lidocaine PATCH 5% PATCH TRANSDERM SCH (19:27)
[2023-05-16] MEDS: Vancomycin 1000 MG in NS 0.9% 250 ML IVPB SCH (20:45)
[2023-05-16] MEDS: THYROID PO SCH (22:08)
[2023-05-16] MEDS: Enoxaparin 40 MG/0.4 ML SYR SUBCUT SCH (22:08)
[2023-05-16] MEDS: [UNRECOGNIZED DRUG - OTHER] PO SCH (22:08)
[2023-05-17] MEDS: ZOSYN 3.375 GM Q8H per EXTENDED INFUSION IV SCH ×2 (00:39→08:05)
[2023-05-17] MEDS ORDERED: Morphine 2 MG/ML SYRINGE IV ONE ×2 (01:27→10:00)
[2023-05-17] MEDS: NS 0.9% 1000 ml BAG 1,000 ML IV SCH (03:34)
[2023-05-17] MEDS: Lidocaine PATCH 5% PATCH TRANSDERM SCH (08:03)
[2023-05-17] MEDS: Cholecalciferol (VIT D3) 1,000 unit TAB PO SCH (08:04)
[2023-05-17] MEDS: THYROID PO SCH ×2 (08:05→20:52)
[2023-05-17] MEDS: [UNRECOGNIZED DRUG - OTHER] PO SCH ×2 (08:05→20:52)
[2023-05-17] MEDS: Vancomycin 1000 MG in NS 0.9% 250 ML IVPB SCH (08:05)
[2023-05-17] MEDS ORDERED: D5W 1/2 NS 1000 ml BAG 1,000 ML IV SCH (09:00)
[2023-05-17] MEDS ORDERED: Fluticasone NASAL SPRAY 50MCG 16 gm SPRAY BTL BOTH NARES SCH (09:00)
[2023-05-17 09:35] LABS: ABS Lymphocytes 0.7 10^3/uL (1.0-4.8); ABS Monocytes 0.9 10^3/uL (0.0-0.9); ABS Neutrophils 9.4 10^3/uL (1.5-7.6); Eosinophil % 0.1 %; Hematocrit 35.6 % (35-45); Lymphocyte % 6.7 %; Mean Corpuscular Hemoglobin 30.1 pg (27-33); Mean Corpuscular Hgb Conc 33.9 g/dL (31-36); Mean Corpuscular Volume 88.9 fL (80-97); Mean Platelet Volume 7.7 fL (7.5-11.2); Platelet Count 210 10^3/uL (150-450); Red Cell Distribution Width 14.4 % (12-17); White Blood Count 11.1 10^3/uL (3.8-11.8)
[2023-05-17 10:02] LABS: Albumin 3.5 g/dL (3.2-5.2); Albumin/Globulin Ratio 1.1 (1-3); Calcium 8.8 mg/dL (8.6-10.3); Creatinine, Serum 0.84 mg/dL (0.51-0.95); Globulin 3.2 g/dL (2-4); Magnesium 1.8 mg/dL (1.9-2.7); Potassium 3.7 mmol/L (3.5-5.0); Total Bilirubin 0.5 mg/dL (0.2-1.0); Total Protein 6.7 g/dL (6.4-8.9); eGFR CKD-EPI 76.1 (>60)
[2023-05-17] MEDS ORDERED: Gadoteridol (CONTRAST) 279.3 MG/ML 10 ML IV ONE (11:31)
[2023-05-17] MEDS: Magnesium Hydroxide LIQ 30 ML UDC PO SCH (11:55)
[2023-05-17] MEDS: Senna TAB 8.6 mg TAB PO SCH (11:55)
[2023-05-17] MEDS: Lidocaine PATCH 4% TOPICAL SCH (12:31)
[2023-05-17] MEDS: ceFAZolin 2 GM in NS PREMIX 2 GM/100 ML BAG IVPB SCH ×2 (12:31→20:51)
[2023-05-17] MEDS: Enoxaparin 40 MG/0.4 ML SYR SUBCUT SCH (20:53)
[2023-05-18] MEDS: Fluticasone NASAL SPRAY 50MCG 16 gm SPRAY BTL BOTH NARES PRN (02:02)
[2023-05-18] MEDS: ceFAZolin 2 GM in NS PREMIX 2 GM/100 ML BAG IVPB SCH ×3 (04:03→20:02)
[2023-05-18 06:42] LABS: ABS Eosinophils 0.1 10^3/uL (0.0-0.5); ABS Lymphocytes 1.1 10^3/uL (1.0-4.8); Eosinophil % 0.6 %; Hematocrit 31.5 % (35-45); Hemoglobin 10.9 g/dL (11.5-14.3); Lymphocyte % 11.8 %; Mean Corpuscular Hemoglobin 30.3 pg (27-33); Mean Corpuscular Hgb Conc 34.5 g/dL (31-36); Mean Corpuscular Volume 87.9 fL (80-97); Mean Platelet Volume 7.6 fL (7.5-11.2); Platelet Count 174 10^3/uL (150-450); Red Blood Count 3.58 10^6/uL (3.63-4.92); Red Cell Distribution Width 14.7 % (12-17); White Blood Count 9.2 10^3/uL (3.8-11.8)
[2023-05-18 06:57] LABS: Creatinine, Serum 0.77 mg/dL (0.51-0.95); Phosphorus 2.3 mg/dL (2.5-5.0); Potassium 3.7 mmol/L (3.5-5.0); eGFR CKD-EPI 84.5 (>60)
[2023-05-18] MEDS: Cholecalciferol (VIT D3) 1,000 unit TAB PO SCH (08:09)
[2023-05-18] MEDS: Senna TAB 8.6 mg TAB PO SCH (08:10)
[2023-05-18] MEDS: [UNRECOGNIZED DRUG - OTHER] PO SCH ×2 (08:12→20:05)
[2023-05-18] MEDS: THYROID PO SCH ×2 (08:12→20:05)
[2023-05-18] MEDS: Magnesium Hydroxide LIQ 30 ML UDC PO SCH (08:12)
[2023-05-18] MEDS: Lidocaine PATCH 5% PATCH TRANSDERM SCH (08:17)
[2023-05-18] MEDS: Lidocaine PATCH 4% TOPICAL SCH (08:17)
[2023-05-18] MEDS ORDERED: Sodium Phosphate IV 15 MMOL in NS 0.9% 250 ml 250 ML IV ONE (08:19)
[2023-05-18] MEDS ORDERED: Vancomycin Trough Check NOTE FOLLOW UP ONE (08:30)
[2023-05-18] MEDS ORDERED: Polyethylene Glycol 3350 17 GM PACKET PO SCH (09:00)
[2023-05-18 13:44] LABS: Anaplasma phagocytophilum Negative (Negative); B. miyamotoi PCR, B Negative (Negative); Babesia divergens/MO-1 Negative (Negative); Babesia ducani Negative (Negative); Ehrlichia chaffeensis Negative (Negative); Ehrlichia ewingii/canis Negative (Negative); Ehrlichia muris eauclairensis Negative (Negative)
[2023-05-18] MEDS: Enoxaparin 40 MG/0.4 ML SYR SUBCUT SCH (20:06)
[2023-05-19] MEDS: ceFAZolin 2 GM in NS PREMIX 2 GM/100 ML BAG IVPB SCH ×3 (03:36→20:38)
[2023-05-19 07:07] LABS: ABS Eosinophils 0.1 10^3/uL (0.0-0.5); ABS Lymphocytes 1.2 10^3/uL (1.0-4.8); ABS Monocytes 1.1 10^3/uL (0.0-0.9); Eosinophil % 1.3 %; Hematocrit 30.3 % (35-45); Hemoglobin 10.4 g/dL (11.5-14.3); Lymphocyte % 12.4 %; Mean Corpuscular Hemoglobin 30.1 pg (27-33); Mean Corpuscular Hgb Conc 34.4 g/dL (31-36); Mean Corpuscular Volume 87.7 fL (80-97); Mean Platelet Volume 7.7 fL (7.5-11.2); Platelet Count 188 10^3/uL (150-450); Red Blood Count 3.46 10^6/uL (3.63-4.92); Red Cell Distribution Width 14.8 % (12-17); White Blood Count 9.4 10^3/uL (3.8-11.8)
[2023-05-19 07:30] LABS: Calcium 8.7 mg/dL (8.6-10.3); Creatinine, Serum 0.72 mg/dL (0.51-0.95); Phosphorus 3.1 mg/dL (2.5-5.0); Potassium 3.4 mmol/L (3.5-5.0); eGFR CKD-EPI 91.6 (>60)
[2023-05-19] MEDS ORDERED: Potassium Chlor 20 meq TAB.ER PO ONE ×3 (07:38→10:15)
[2023-05-19] MEDS: Cholecalciferol (VIT D3) 1,000 unit TAB PO SCH (09:14)
[2023-05-19] MEDS: Lidocaine PATCH 5% PATCH TRANSDERM SCH (09:22)
[2023-05-19] MEDS: Lidocaine PATCH 4% TOPICAL SCH (09:22)
[2023-05-19] MEDS: THYROID PO SCH ×2 (09:27→22:21)
[2023-05-19] MEDS: [UNRECOGNIZED DRUG - OTHER] PO SCH ×2 (09:27→22:21)
[2023-05-19] MEDS ORDERED: Saline NASAL SPRAY 0.65% BTL BOTH NARES PRN (11:08)
[2023-05-19] MEDS ORDERED: Magnesium Hydroxide LIQ 30 ML UDC PO PRN (13:52)
[2023-05-19] MEDS: Senna TAB 8.6 mg TAB PO PRN (14:10)
[2023-05-19] MEDS: Lactated Ringers 1000 ml BAG 1,000 ML IV SCH (16:48)
[2023-05-19] MEDS ORDERED: Simethicone SUSP ORALSYR 66.66 MG/ML PO PRN (20:32)
[2023-05-19] MEDS: Enoxaparin 40 MG/0.4 ML SYR SUBCUT SCH (20:45)
[2023-05-19] MEDS: Polyethylene Glycol 3350 17 GM PACKET PO SCH (20:46)
[2023-05-20] MEDS: Lactated Ringers 1000 ml BAG 1,000 ML IV SCH (00:51)
[2023-05-20] MEDS: ceFAZolin 2 GM in NS PREMIX 2 GM/100 ML BAG IVPB SCH ×3 (03:21→20:48)
[2023-05-20 07:26] LABS: ABS Basophils 0.1 10^3/uL (0.0-0.1); ABS Eosinophils 0.1 10^3/uL (0.0-0.5); ABS Lymphocytes 1.1 10^3/uL (1.0-4.8); ABS Neutrophils 7.1 10^3/uL (1.5-7.6); Eosinophil % 1.3 %; Hematocrit 29.1 % (35-45); Hemoglobin 10.2 g/dL (11.5-14.3); Mean Corpuscular Hemoglobin 30.7 pg (27-33); Mean Corpuscular Hgb Conc 35.2 g/dL (31-36); Mean Corpuscular Volume 87.3 fL (80-97); Platelet Count 261 10^3/uL (150-450); Red Blood Count 3.33 10^6/uL (3.63-4.92); Red Cell Distribution Width 14.9 % (12-17); White Blood Count 9.4 10^3/uL (3.8-11.8)
[2023-05-20 08:17] LABS: Calcium 8.6 mg/dL (8.6-10.3); Creatinine, Serum 0.69 mg/dL (0.51-0.95); Phosphorus 2.7 mg/dL (2.5-5.0); eGFR CKD-EPI 95.1 (>60)
[2023-05-20] MEDS: THYROID PO SCH ×3 (09:35→18:26)
[2023-05-20] MEDS: [UNRECOGNIZED DRUG - OTHER] PO SCH ×3 (09:35→18:26)
[2023-05-20] MEDS: Cholecalciferol (VIT D3) 1,000 unit TAB PO SCH (09:46)
[2023-05-20] MEDS: Lidocaine PATCH 4% TOPICAL SCH (10:03)
[2023-05-20] MEDS: Polyethylene Glycol 3350 17 GM PACKET PO SCH ×2 (10:03→21:36)
[2023-05-20] MEDS: Lidocaine PATCH 5% PATCH TRANSDERM SCH (10:03)
[2023-05-20] MEDS: Fluticasone NASAL SPRAY 50MCG 16 gm SPRAY BTL BOTH NARES PRN (18:26)
[2023-05-20] MEDS: Enoxaparin 40 MG/0.4 ML SYR SUBCUT SCH (21:31)
[2023-05-20] MEDS: Senna TAB 8.6 mg TAB PO PRN (21:33)
[2023-05-20] MEDS: oxyCODONE SR 15 mg TAB PO SCH (21:36)
[2023-05-21] MEDS: ceFAZolin 2 GM in NS PREMIX 2 GM/100 ML BAG IVPB SCH ×3 (04:02→22:02)
[2023-05-21 06:21] LABS: Hematocrit 29.1 % (35-45); Hemoglobin 10.1 g/dL (11.5-14.3); Mean Corpuscular Hemoglobin 30.5 pg (27-33); Mean Corpuscular Hgb Conc 34.6 g/dL (31-36); Mean Corpuscular Volume 88.1 fL (80-97); Platelet Count 338 10^3/uL (150-450); Red Cell Distribution Width 14.7 % (12-17); White Blood Count 9.9 10^3/uL (3.8-11.8)
[2023-05-21 06:45] LABS: ABS Basophils 0.1 10^3/uL (0.0-0.1); ABS Eosinophils 0.4 10^3/uL (0.0-0.5); ABS Lymphocytes 1.8 10^3/uL (1.0-4.8); ABS Monocytes 0.9 10^3/uL (0.0-0.9); ABS Neutrophils 6.6 10^3/uL (1.5-7.6); Eosinophil % 4.3 %; Lymphocyte % 18.3 %
[2023-05-21 06:48] LABS: Calcium 8.9 mg/dL (8.6-10.3); Creatinine, Serum 0.71 mg/dL (0.51-0.95); Magnesium 2.1 mg/dL (1.9-2.7); Phosphorus 3.7 mg/dL (2.5-5.0); Potassium 4.2 mmol/L (3.5-5.0); eGFR CKD-EPI 93.1 (>60)
[2023-05-21] MEDS: THYROID PO SCH ×2 (09:16→18:03)
[2023-05-21] MEDS: [UNRECOGNIZED DRUG - OTHER] PO SCH ×2 (09:16→18:03)
[2023-05-21] MEDS: Cholecalciferol (VIT D3) 1,000 unit TAB PO SCH (09:21)
[2023-05-21] MEDS: Lidocaine PATCH 4% TOPICAL SCH (09:22)
[2023-05-21] MEDS: Lidocaine PATCH 5% PATCH TRANSDERM SCH (09:22)
[2023-05-21] MEDS: oxyCODONE SR 15 mg TAB PO SCH ×2 (09:23→21:59)
[2023-05-21] MEDS: Fluticasone NASAL SPRAY 50MCG 16 gm SPRAY BTL BOTH NARES PRN (09:25)
[2023-05-21] MEDS: Polyethylene Glycol 3350 17 GM PACKET PO SCH ×2 (09:25→21:57)
[2023-05-21] MEDS: Enoxaparin 40 MG/0.4 ML SYR SUBCUT SCH (22:01)
[2023-05-22] MEDS: ceFAZolin 2 GM PREMIX 2 GM/50 ML BAG IV SCH ×3 (04:11→20:30)
[2023-05-22 07:01] LABS: Hematocrit 29.8 % (35-45); Hemoglobin 10.1 g/dL (11.5-14.3); Mean Corpuscular Hgb Conc 33.9 g/dL (31-36); Mean Corpuscular Volume 88.3 fL (80-97); Platelet Count 413 10^3/uL (150-450); Red Blood Count 3.37 10^6/uL (3.63-4.92); Red Cell Distribution Width 14.9 % (12-17); White Blood Count 10.4 10^3/uL (3.8-11.8)
[2023-05-22 07:10] LABS: Calcium 8.9 mg/dL (8.6-10.3); Creatinine, Serum 0.63 mg/dL (0.51-0.95); Magnesium 2.1 mg/dL (1.9-2.7); Potassium 4.2 mmol/L (3.5-5.0); eGFR CKD-EPI 97.2 (>60)
[2023-05-22 07:33] LABS: ABS Basophils 0.1 10^3/uL (0.0-0.1); ABS Eosinophils 0.5 10^3/uL (0.0-0.5); ABS Lymphocytes 2.3 10^3/uL (1.0-4.8); ABS Neutrophils 6.6 10^3/uL (1.5-7.6); Eosinophil % 4.5 %
[2023-05-22] MEDS ORDERED: guaiFENesin 100 mg/5 ml LIQ unit dose cup PO ONE (08:04)
[2023-05-22] MEDS ORDERED: Senna TAB 8.6 mg TAB PO ONE (08:59)
[2023-05-22] MEDS: Lidocaine PATCH 4% TOPICAL SCH (09:54)
[2023-05-22] MEDS: Lidocaine PATCH 5% PATCH TRANSDERM SCH (09:55)
[2023-05-22] MEDS: Cholecalciferol (VIT D3) 1,000 unit TAB PO SCH (10:10)
[2023-05-22] MEDS ORDERED: oxyCODONE SR 10 mg TAB PO ONE (10:14)
[2023-05-22] MEDS: Polyethylene Glycol 3350 17 GM PACKET PO SCH ×2 (10:14→22:16)
[2023-05-22] MEDS: THYROID PO SCH ×2 (10:15→20:29)
[2023-05-22] MEDS: [UNRECOGNIZED DRUG - OTHER] PO SCH ×2 (10:15→20:29)
[2023-05-22] MEDS: oxyCODONE SR 15 mg TAB PO SCH ×3 (10:16→22:15)
[2023-05-22] MEDS ORDERED: fentaNYL 100 mcg/2 ml 50 MCG/ML VIAL ONE (15:33)
[2023-05-22] MEDS ORDERED: Midazolam 5 mg/5 ml VIAL 1 mg/ml 5 ml VIAL (5 mg) ONE (15:33)
[2023-05-22] MEDS ORDERED: Flumazenil 0.5 mg/5 ml 0.1 MG/ML 5 ml VIAL ONE (15:33)
[2023-05-22] MEDS ORDERED: Naloxone 0.4 mg VIAL 0.4 mg/ml 1 ml VIAL ONE (15:33)
[2023-05-22] MEDS ORDERED: fentaNYL 100 mcg/2 ml 50 MCG/ML VIAL IV SLOW PU ONE (15:41)
[2023-05-22] MEDS ORDERED: Midazolam 10 mg/10 ml VIAL 1 mg/ml 10 ml VIAL (10 mg) IV SLOW PU ONE (15:41)
[2023-05-22] MEDS: Enoxaparin 40 MG/0.4 ML SYR SUBCUT SCH (22:16)
[2023-05-23] MEDS: ceFAZolin 2 GM PREMIX 2 GM/50 ML BAG IV SCH ×3 (03:08→20:23)
[2023-05-23 08:41] LABS: ABS Basophils 0.1 10^3/uL (0.0-0.1); ABS Eosinophils 0.3 10^3/uL (0.0-0.5); ABS Lymphocytes 2.3 10^3/uL (1.0-4.8); ABS Monocytes 1.1 10^3/uL (0.0-0.9); ABS Neutrophils 8.3 10^3/uL (1.5-7.6); ABS Nucleated RBC 0.01 10^3/ul; Eosinophil % 2.2 %; Hematocrit 29.9 % (35-45); Hemoglobin 9.9 g/dL (11.5-14.3); Lymphocyte % 18.8 %; Mean Corpuscular Hemoglobin 29.3 pg (27-33); Mean Corpuscular Hgb Conc 33.2 g/dL (31-36); Mean Corpuscular Volume 88.3 fL (80-97); Mean Platelet Volume 6.6 fL (7.5-11.2); Platelet Count 483 10^3/uL (150-450); Red Blood Count 3.38 10^6/uL (3.63-4.92); Red Cell Distribution Width 14.9 % (12-17); White Blood Count 12.1 10^3/uL (3.8-11.8)
[2023-05-23 08:59] LABS: Calcium 8.8 mg/dL (8.6-10.3); Creatinine, Serum 0.68 mg/dL (0.51-0.95); Potassium 4.4 mmol/L (3.5-5.0); eGFR CKD-EPI 95.4 (>60)
[2023-05-23] MEDS: Lidocaine PATCH 4% TOPICAL SCH (09:56)
[2023-05-23] MEDS: Lidocaine PATCH 5% PATCH TRANSDERM SCH (09:56)
[2023-05-23] MEDS: Polyethylene Glycol 3350 17 GM PACKET PO SCH ×2 (10:16→20:23)
[2023-05-23] MEDS: Cholecalciferol (VIT D3) 1,000 unit TAB PO SCH (10:17)
[2023-05-23] MEDS: oxyCODONE SR 15 mg TAB PO SCH ×2 (10:17→20:28)
[2023-05-23] MEDS: [UNRECOGNIZED DRUG - OTHER] PO SCH ×2 (10:18→18:16)
[2023-05-23] MEDS: THYROID PO SCH ×2 (10:18→18:16)
[2023-05-23] MEDS: Fluticasone NASAL SPRAY 50MCG 16 gm SPRAY BTL BOTH NARES PRN (10:19)
[2023-05-23] MEDS: Enoxaparin 40 MG/0.4 ML SYR SUBCUT SCH (20:29)
[2023-05-24] MEDS: ceFAZolin 2 GM PREMIX 2 GM/50 ML BAG IV SCH ×2 (03:59→11:37)
[2023-05-24 05:26] LABS: ABS Basophils 0.1 10^3/uL (0.0-0.1); ABS Eosinophils 0.3 10^3/uL (0.0-0.5); ABS Lymphocytes 2.4 10^3/uL (1.0-4.8); ABS Monocytes 1.1 10^3/uL (0.0-0.9); ABS Neutrophils 7.4 10^3/uL (1.5-7.6); ABS Nucleated RBC 0.01 10^3/ul; Eosinophil % 2.4 %; Hemoglobin 10.3 g/dL (11.5-14.3); Lymphocyte % 21.2 %; Mean Corpuscular Hemoglobin 30.4 pg (27-33); Mean Corpuscular Hgb Conc 34.3 g/dL (31-36); Mean Corpuscular Volume 88.6 fL (80-97); Mean Platelet Volume 6.7 fL (7.5-11.2); Nucleated Red Blood Cells % 0.1 %/100WBC (0.0-0.8); Platelet Count 542 10^3/uL (150-450); Red Blood Count 3.39 10^6/uL (3.63-4.92); White Blood Count 11.1 10^3/uL (3.8-11.8)
[2023-05-24 05:41] LABS: Calcium 9.2 mg/dL (8.6-10.3); Creatinine, Serum 0.67 mg/dL (0.51-0.95); Potassium 4.3 mmol/L (3.5-5.0); eGFR CKD-EPI 95.7 (>60)
[2023-05-24] MEDS: oxyCODONE SR 15 mg TAB PO SCH ×2 (08:12→09:57)
[2023-05-24] MEDS: THYROID PO SCH (08:12)
[2023-05-24] MEDS: Polyethylene Glycol 3350 17 GM PACKET PO SCH (08:12)
[2023-05-24] MEDS: Cholecalciferol (VIT D3) 1,000 unit TAB PO SCH (08:12)
[2023-05-24] MEDS: [UNRECOGNIZED DRUG - OTHER] PO SCH (08:12)
[2023-05-24] MEDS: Lidocaine PATCH 4% TOPICAL SCH (08:18)
[2023-05-24] MEDS: Lidocaine PATCH 5% PATCH TRANSDERM SCH (08:18)
[2023-05-24] MEDS: Fluticasone NASAL SPRAY 50MCG 16 gm SPRAY BTL BOTH NARES PRN (09:56)
[2023-05-24 10:49] VITALS: BP 136/78
== END 2023-05-24 13:30 | disposition home or self-care (01) | DRG 540 ==
LOC: ED 00:21 → SUATTDRO 13:44 → EDHOLD 13:44 → MED 15:09
PROVIDERS: ADMIT Internal Medicine; ATTEND Internal Medicine